=== PATIENT | male | born 1945 | race Caucasian/White ===

== ENCOUNTER 2017-03-23 08:09 | Outpatient (CLI) | payer MEDICARE ==
--- NOTE | 2017-03-23 09:01 | ULT ---
ULTRASOUND RETROPERITONEUM LIMTED: (ABDOMINAL AORTA) HISTORY: 72-year-old male for abdominal aortic aneurysm screening. FINDINGS: The caliber of the entire abdominal aorta is normal. IMPRESSION: No abdominal aortic aneurysm. stevan POS: [facility]
== END 2017-03-23 08:10 | disposition home or self-care (01) ==
LOC: ULT 08:09
PROVIDERS: ATTEND Nurse Practitioner Family
DX: Z13.6 Encounter for screening for cardiovascular disorders (principal)
CPT/HCPCS: 76775